=== PATIENT | female | born 1980 | race Caucasian/White ===

== ENCOUNTER 2016-05-12 15:42 | Emergency (ER) | payer OTHER ==
--- NOTE | ~2016-05-12 | CT2 ---
[facility] A Service of [facility] & [facility] RADIOLOGY TEXT RESULTS PATIENT: PATRICIA SUAREZ LOCATION: [facility] : 82 UNIT #: [id number] AGE: [address]: Simba Correa MD SEX: F ORDER DR: [id number] [facility] [address] [place], [place] [address] [id number] E MR#: [id number] Acc #: [id number] NAME: PATRICIA SUAREZ : 1980 SEX: F STUDY DATE/TIME: 05/12/2016 16:18 UNIT: [facility] ROOM: STUDY DESCRIPTION: CT Abd and Pelv W Cont Attending Physician: Simba Correa M.D. Ordering Physician: Vijay Coppola M.D. Primary Care Physician: Jose Guthrie M.D. MEDICAL IMAGING REPORT This report is preliminary unless electronic signature is present EXAM Abdomen and pelvis CT with contrast 05/12/2016 INDICATION 35-year-old female with abdominal pain and vomiting. Left upper quadrant pain. The patient believes she has worms. Cholecystectomy. TECHNIQUE Contrast-enhanced abdomen and pelvis CT was performed and compared with 04/29/2016. This CT examination was performed with one or more of the following radiation dose reduction techniques: automatic exposure control, adjustment of mA and/or kV according to patient size, and iterative reconstruction. FINDINGS CT ABDOMEN: There is some minimal atelectasis/scarring in the superior segment right lower lobe. Lung bases otherwise clear. No effusion or pericardial effusion. Aorta unremarkable. Gallbladder is surgically absent. Spleen, adrenal glands and pancreas unremarkable. Liver unremarkable. Kidneys nonobstructed. There is a small cyst in the left kidney. 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 There is relative atrophy of the upper pole collecting system on the left and cortical scarring. Findings are unchanged from the prior study for technical factors. No adenopathy or fluid collection. CT PELVIS: Bladder unremarkable. No adnexal mass, free fluid or drainable fluid collection in the pelvis. Tampon artifact noted in the vaginal canal. Bowel demonstrates no inflammatory change or obstruction and the appendix is normal. Inguinal canals unremarkable. There is no suspicious bone lesion. [facility] A Service of [facility] & [facility] RADIOLOGY TEXT RESULTS PATIENT: PATRICIA SUAREZ LOCATION: [facility] : 82 UNIT #: [id number] AGE: [address]: Simba Correa MD SEX: F ORDER DR: IMPRESSION 1. No clearly acute process in the abdomen or pelvis. No bowel obstruction, drainable fluid collection or focal area of inflammatory change and the appendix is normal. 2. 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 Incidental left renal cyst. 3. Status post cholecystectomy. Dictated by... Kumar Kim M.D. THIS IS AN ELECTRONICALLY VERIFIED REPORT Kumar Kim M.D. at 05/13/2016 7:21 AM FABRICE/christine TD: 05/13/2016 07:05 JOB #: [id number] MEDICAL IMAGING REPORT COPY
[2016-05-12 14:24] LABS: URINE SOURCE CLEAN CATCH
[2016-05-12 14:27] LABS: BASOPHIL% 0.2 % (0-2.5); EOSINOPHIL# 0.1 X10e3 (0-0.7); EOSINOPHIL% 2.5 % (0.0-7.0); HEMATOCRIT 42.7 % (35.0-45.0); HEMOGLOBIN 13.8 gm/dL (12.0-16.0); LYMPHOCYTE# 1.7 X10e3 (1.0-3.5); LYMPHOCYTE% 33.5 % (17.0-45.0); MEAN CELL VOLUME 81.3 FL (83-96); MEAN CORPUSCULAR HEMOGLOBIN 26.2 PG (28-34); MEAN CORPUSCULAR HGB CONC 32.2 g/dL (30-36); MEAN PLATELET VOLUME 7.7 FL (6.5-11.5); MONOCYTE# 0.3 X10e3 (0-1.0); MONOCYTE% 5.9 % (3.0-12.0); NEUTROPHIL% 57.9 % (40-75); PLATELET COUNT 215 X10e3 (140-420); RED BLOOD COUNT 5.25 X10e (3.90-5.30); WHITE BLOOD COUNT 5.1 X10e3 (4.0-10.5)
[2016-05-12 14:33] LABS: DIFF IND NO
[2016-05-12 14:41] LABS: URINE APPEARANCE CLEAR; URINE BILIRUBIN NEG (NEG); URINE BLOOD NEG (NEG); URINE COLOR YELLOW; URINE GLUCOSE NEG (NEG); URINE KETONE NEG (NEG); URINE LEUKOCYTE ESTERASE NEG (NEG); URINE NITRATE NEG (NEG); URINE PROTEIN NEG (NEG); URINE SPECIFIC GRAVITY 1.018 (1.003-1.035); URINE UROBILINOGEN 0.2 MG/DL (NEG)
[2016-05-12 14:49] LABS: CULTURE INDICATED? NO
[2016-05-12 15:07] LABS: ALBUMIN SERUM 4.4 g/dL (3.5-5.0); ALKALINE PHOSPHATASE 86 U/L (32-92); ALT (SGPT) 18 U/L (10-40); AMYLASE 46 U/L (0-46); AST (SGOT) 20 U/L (10-42); BILIRUBIN, DIRECT 0.1 mg/dL (0.0-0.2); BILIRUBIN,INDIRECT 0.4 mg/dL (0.0-0.9); BILIRUBIN,TOTAL 0.5 mg/dL (0.2-2.0); BLOOD UREA NITROGEN 10 mg/dL (9-23); BUN/CREATININE RATIO 16.66; CALCIUM SERUM 9.4 mg/dL (8.4-10.2); CARBON DIOXIDE 26 mmol/L (22-31); CHLORIDE 105 mmol/L (100-111); CREATININE SERUM 0.6 mg/dL (0.6-1.4); GLOM FILT RATE Estimated ABOVE60 mL/min (>60); GLUCOSE FASTING 113 mg/dL (70-110); LIPASE 47 U/L (22-51); POTASSIUM 4.2 mmol/L (3.5-5.1); PROTEIN TOTAL SERUM 7.9 g/dL (6.0-8.3); SODIUM 141 mmol/L (135-145)
== END 2016-05-12 16:55 | disposition home or self-care (01) ==
LOC: CED 15:42
PROVIDERS: Emergency Medicine
DX: R10.12 Left upper quadrant pain (principal); R11.2 Nausea with vomiting, unspecified; Z90.49 Acquired absence of other specified parts of digestive tract; Z88.0 Allergy status to penicillin
CPT/HCPCS: 36415; 74177; 80048; 80076; 81003; 82150; 83690; 84703; 85025; 96361; 96374; 96375; 99284; J2270; J2405; Q9967

== ENCOUNTER 2016-06-05 12:53 | Inpatient (IN) | payer OTHER ==
--- NOTE | ~2016-06-05 | DS ---
Unit #: [id number] #: [id number] Patient: PATRICIA SUAREZ [id number] [address] [place], [place] [address] [id number] I MR#: [id number] NAME: PATRICIA SUAREZ ROOM: 323 Age: 35 Sex: F Admission Date: 06/05/2016 : 1980 Discharge Date: 06/08/2016 Attending Physician: Peyton Byrne M.D. Primary Care Physician: Jose Guthrie M.D. DISCHARGE SUMMARY FINAL DIAGNOSES 1. Intractable nausea, vomiting, which is resolved. 2. The patient was afebrile during hospitalization. 3. Headache, which is improved. 4. Question of meningitis, which has been ruled out. 5. Hypokalemia, resolved. 6. Acute bronchitis. 7. Acute sinusitis. 8. Urinary tract infection. DISCHARGE MEDICATIONS Doxycycline 100 mg p.o. b.i.d. for 7 days; prednisone 30 mg p.o. daily for 3 days, then decrease 10 mg every 3 days until off. Continue rest of the home medications. CONSULTATION DURING HOSPITALIZATION Dr. Concepcion from Pulmonary Services; Dr. Colin from Neurology Services. HOSPITAL COURSE A 35-year-old, female, patient of Dr. Guthrie, has been seen in the ER several times for the similar problem. She was diagnosed with flu and acute upper respiratory infection, was given antibiotic, and sent home. She did not get better, returns with nausea, vomiting, and fever at home. Also in the ER, the patient's temp was 99.7. She did complain of headache and vomiting episodes. The patient was admitted to telemetry unit at [facility]. CT scan of the head was done, which was normal. Neurology was consulted. Per Dr. Colin, does not clinically look like this meningitis, so just continue to observe. The patient is doing much better at this time. The patient received IV acyclovir, IV vancomycin, and IV Rocephin on admission, which was later on changed to IV Rocephin only. The patient is doing much better. She wants to be discharged home. The patient did not have an episode of bradycardia. According to the patient, she gets that while sleeping. She has history of narcolepsy and she will follow up with primary care provider on that. The patient's lactic acid was high, but as per Dr. Concepcion, it is from nebulizer treatment, but we are going to repeat one set before discharge. DISCHARGE PHYSICAL EXAMINATION VITAL SIGNS: On discharge, blood pressure 137/62, respiratory rate 20, pulse is 68, temperature 98.2. HEENT: Head is normocephalic. CHEST: Fair air entry. Unit #: [id number] #: [id number] Patient: PATRICIA SUAREZ CVS: Regular rhythm. DISCHARGE INSTRUCTIONS 1. The patient is being discharged home in stable condition. 2. The patient did have an episode of bradycardia in the nighttime according to the patient whenever she takes pain medication, it does happen. She may need workup as an outpatient. This was told to the patient also. TSH to be done and further cardiac workup may need to be done. 3. The patient is being discharged on doxycycline b.i.d. 4. The patient had hypertension during hospitalization. Norvasc is being prescribed that may need to be adjusted as outpatient. 5. The patient has been advised to follow up with primary care provider in 1 week. 6. Follow up with Dr. Concepcion in 2 weeks. Dictated by... Kasey Rich/marian TD: 06/09/2016 07:25 JOB #: [id number] DISCHARGE SUMMARY Page 1 of 1 X Peyton Byrne MD X DISCHARGE SUMMARY
--- NOTE | ~2016-06-05 | CR63 ---
[facility] A Service of [facility] RADIOLOGY TEXT RESULTS PATIENT: PATRICIA SUAREZ LOCATION: [facility] : [birth year] UNIT #: [id number] AGE: [address]: Peyton Byrne MD SEX: F ORDER DR: [id number] [facility] [address] [place], [place] [address] [id number] E MR#: [id number] Acc #: [id number] NAME: PATRICIA SUAREZ : 1980 SEX: F STUDY DATE/TIME: 06/05/2016 13:17 UNIT: [facility] ROOM: STUDY DESCRIPTION: CR Chest 2 View Attending Physician: Azalia Ren A.P.R.N. Ordering Physician: Edward Ayoub M.D. Primary Care Physician: Jose Guthrie M.D. MEDICAL IMAGING REPORT This report is preliminary unless electronic signature is present EXAM Chest x-ray, 06/05/2016. HISTORY Fever, cough, and short of air for 1 month. COMPARISON 08/10/2010 FINDINGS PA and lateral examination of the chest upright shows a good expansion of the parenchyma with a normal distribution of the pulmonary vascularity. There is no indication of congestion, effusion, infiltrate, tumor, or nodular density. The pleural reflections and diaphragmatic contours are normal. The cardiac silhouette and mediastinal anatomy is within normal limits. IMPRESSION Normal chest. Dictated by... Noel Polo Jr., M.D. THIS IS AN ELECTRONICALLY VERIFIED REPORT Noel Polo Jr., M.D. at 06/05/2016 4:31 PM PETERSON/marito TD: 06/05/2016 14:59 JOB #: [id number] [facility] A Service [facility] RADIOLOGY TEXT RESULTS PATIENT: PATRICIA SUAREZ LOCATION: [facility] : [birth year] UNIT #: [id number] AGE: [address]: Peyton Byrne MD SEX: F ORDER DR: MEDICAL IMAGING REPORT Page 1 of 1 COPY
--- NOTE | ~2016-06-05 | CT57 ---
[facility] A Service of [facility] & [facility] RADIOLOGY TEXT RESULTS PATIENT: PATRICIA SUAREZ LOCATION: [facility] 323-01 : [birth year] UNIT #: [id number] AGE: [address]: Peyton Byrne MD SEX: F ORDER DR: [id number] [facility] [address] [place], [place] [address] [id number] I MR#: [id number] Acc #: [id number] NAME: PATRICIA SUAREZ : 1980 SEX: F STUDY DATE/TIME: 06/07/2016 16:47 UNIT: A U ROOM: 323 STUDY DESCRIPTION: CT Chest Wo Cont Attending Physician: Peyton Byrne M.D. Ordering Physician: Peyton Byrne M.D. Primary Care Physician: Jose Guthrie M.D. MEDICAL IMAGING REPORT This report is preliminary unless electronic signature is present EXAM CT chest without contrast. HISTORY Posterior chest pain, concern for pneumonia. Patient has had a fever, cough and shortness of air for a month. No cancer history. COMMENT This CT exam was performed with one or more of the following radiation dose reduction techniques: automatic exposure control, adjustment of mA and/or kV according to patient size, and iterative reconstruction. CT of chest performed in the axial plane without contrast followed by sagittal and coronal reconstructed images. Lack of contrast media limits evaluation for hilar mediastinal lymphadenopathy. Study cannot evaluate for pulmonary embolism. COMPARISON STUDIES There is earlier chest x-ray from 06/05/2016. FINDINGS Some limitation study by the patient's obesity. There is a small amount of pneumonitis at the right lower lobe laterally anteriorly and a small amount of pneumonitis in the left lower lobe posteriorly. These areas have subtle tree-in-bud appearance, and I suspect there are small areas of infectious or inflammatory disease. The involvement in the left lower lobe is more prominent than the right-sided involvement but still relatively mild. The lungs are otherwise clear. There is no pneumothorax or pleural effusion. No axillary adenopathy. The patient has had a cholecystectomy. No obvious pericardial effusion. There are degenerative changes in the thoracic spine, mid to lower levels STS. [facility] A Service of [facility] & [facility] RADIOLOGY TEXT RESULTS PATIENT: PATRICIA SUAREZ LOCATION: [facility] 323-01 : [birth year] UNIT #: [id number] AGE: [address]: Peyton Byrne MD SEX: F ORDER DR: with component of Scheuermann's disease appreciated. IMPRESSION 1. Subtle areas of pneumonitis posteriorly in the left lower lobe and more laterally in the right lower lobe. I suspect infectious or inflammatory disease given the areas of csug-bl-uzh-like involvement. Clinical correlation follow up suggested to ensure resolution. 2. No pneumothorax, pleural effusion or pericardial effusion. 3. There is evidence for thoracic spine degenerative disease with changes consistent with Scheuermann's disease lower thoracic spine. These are chronic finding but can be associated with back pain. 4. The study is limited by the patient's obesity and the lack of IV contrast media. Dictated by... Amanda Shin M.D. THIS IS AN ELECTRONICALLY VERIFIED REPORT Amanda Shin M.D. at 06/08/2016 3:09 PM WALESKA/chuckie TD: 06/08/2016 14:38 JOB #: [id number] MEDICAL IMAGING REPORT Page 1 of 1 COPY
--- NOTE | ~2016-06-05 | CT71 ---
[facility] A Service of [facility] RADIOLOGY TEXT RESULTS PATIENT: PATRICIA SUAREZ LOCATION: [facility] 323-01 : [birth year] UNIT #: [id number] AGE: [address]: Peyton Byrne MD SEX: F ORDER DR: [id number] [place] [id number] [facility] [place], [place] [address] [id number] I MR#: [id number] Acc #: [id number] NAME: PATRICIA SUAREZ : 1980 SEX: F STUDY DATE/TIME: 06/06/2016 17:17 UNIT: [address] ROOM: [facility] STUDY DESCRIPTION: CT Head Wo Contrast Attending Physician: Peyton Byrne M.D. Ordering Physician: Edgardo Jade M.D. Primary Care Physician: Jose Guthrie M.D. MEDICAL IMAGING REPORT This report is preliminary unless electronic signature is present EXAM CT head without contrast dated 06/06/2016 COMPARISON None. HISTORY Evaluate for meningitis. Headaches and fever for [address] exam was performed with one or more of the following radiation dose reduction techniques: automatic control, adjustment of mA and/or kV according to patient size, and iterative reconstruction. FINDINGS CT of the head was obtained without contrast in the axial plane as per the protocol. No acute intracranial hemorrhage, space-occupying mass, mass effect, midline shift or hydrocephalus. There is complete opacification of the right maxillary antrum. Mild right sphenoid, mild right ethmoid and inferior right frontal sinus mucosal thickening is seen. Nasal septum is deviated to the left with an apical spur. IMPRESSION 1. Brain does not demonstrate any significant abnormality. 2. Severe sinusitis of the right maxillary antrum is suspected in the appropriate clinical setting. Correlate clinically. Dictated by... Elly Xiao M.D. THIS IS AN ELECTRONICALLY VERIFIED REPORT Elly Xiao M.D. at 06/11/2016 8:44 AM CPR/rnr [facility] A Service of [facility] RADIOLOGY TEXT RESULTS PATIENT: PATRICIA SUAREZ LOCATION: [facility] 323-01 : [birth year] UNIT #: [id number] AGE: [address]: Peyton Byrne MD SEX: F ORDER DR: TD: 06/07/2016 03:58 JOB #: [id number] MEDICAL IMAGING REPORT Page 1 of 1 COPY
--- NOTE | ~2016-06-05 | HP ---
Unit #: [id number] #: [id number] Patient: PATRICIA SUAREZ [id number] [address] [address] [id number] I MR#: [id number] NAME: PATRICIA SUAREZ ROOM: 323 Age: 35 Sex: F Admission Date: 06/05/2016 : 1980 Attending Physician: Peyton Byrne M.D. Primary Care Physician: Jose Guthrie M.D. HISTORY AND PHYSICAL ADMISSION DIAGNOSES 1. Intractable nausea and vomiting. 2. Fever. 3. Headache. 4. Hypokalemia. 5. Acute bronchitis. HISTORY OF PRESENT ILLNESS Ms. Suarez is a 35-year-old female patient of Dr. Guthrie, who apparently was seen in the emergency room several times for the similar problems, was diagnosed with the acute upper respiratory infection, was given some antibiotics and sent home. She returns with the same complaints of congestion, intractable nausea and vomiting. Today she is with the low-grade fever of 99.7, also complains of some headache and continues to have vomiting episodes. Otherwise she denies any dizziness, denies any chest pain or increasing shortness of air, denies any syncope or presyncope, denies any abdominal pain, denies any diarrhea. REVIEW OF SYSTEMS A 12-point review of systems on this patient is basically negative except as above. PAST MEDICAL HISTORY Past medical history is significant for no chronic medical issues. PAST SURGICAL HISTORY She is status post cholecystectomy. HOME MEDICATIONS Apparently she was given some antibiotic and she was taking some poqy-mxt-xexiugu decongestants. ALLERGIES Penicillin. SOCIAL HISTORY Significant for occasional marijuana use, denies any IV drugs, she is an active smoker. FAMILY HISTORY Unremarkable. PHYSICAL EXAMINATION Unit #: [id number] #: [id number] Patient: PATRICIA SUAREZ GENERAL: On the physical exam patient is a 35-year-old female who is upset and anxious secondary to her ongoing nausea and vomiting. VITAL SIGNS: BP 148/78. Heart rate 78. Respirations 20. Temperature 99.7. HEENT: Head is atraumatic. Pupils equal, round and reactive to light and accommodation. Extraocular muscles intact. Oropharynx clear. NECK: Neck is supple. No mass. No JVD. No bruits. CHEST: Chest is diminished with occasional rhonchi. CARDIOVASCULAR EXAM: S1, S2. No murmurs. ABDOMEN: Soft, obese, nontender, nondistended. Bowel sounds present. EXTREMITIES: Lower extremities without any significant cyanosis, clubbing or edema. NEUROLOGICAL EXAM: Without any focal deficits. DIAGNOSTIC STUDIES IMAGING: Chest x-ray is normal. LABORATORY: White count 4.9, hemoglobin and hematocrit 14.6 and 44.3. Influenza panel negative. Chemistry significant for blood glucose 143 and potassium of 3.2. ASSESSMENT AND PLAN 1. Intractable nausea and vomiting along with the headache and fever: I started patient on IV vancomycin, Rocephin and acyclovir empirically. Will get the STAT CT of the head without the contrast. Will get Neurology and I/D evaluation. If CT head okay may proceed with the LP but for now empirically she will be covered for bacterial and viral as well. 2. Acute bronchitis: Status post evaluation per Pulmonary. Ordered a CT of the chest. Continue Zithromax per pulmonary. 3. Likely a urinary tract infection: Follow up on urine culture. Rocephin should cover. 4. Hypokalemia: Replace potassium and follow up on magnesium level. 5. GI and DVT prophylaxis: Continue PPI and put on Lovenox. Dictated by Edgardo Jade M.D. OC/robin TD: 06/06/2016 21:10 JOB #: [id number] Unit #: [id number] #: [id number] Patient: PATRICIA SUAREZ HISTORY AND PHYSICAL Page 1 of 1 X Edgardo Jade MD X HISTORY AND PHYSICAL
--- NOTE | ~2016-06-05 | CO ---
Unit #: [id number] #: [id number] Patient: PATRICIA SUAREZ [id number] [facility] [address]. [place], [place] [address] [id number] I MR#: [id number] NAME: PATRICIA SUAREZ ROOM: 323 Age: 35 Sex: F Admission Date: 06/05/2016 : 1980 Attending Physician: Peyton Byrne M.D. Primary Care Physician: Jose Guthrie M.D. Consultation Date: 06/07/2016 CONSULTATION REPORT PRIMARY CARE PHYSICIAN Jose Guthrie M.D. REASON FOR CONSULTATION Rule out meningitis. PATIENT IDENTIFICATION This is a 35-year-old, right-handed, white female, who was evaluated in room 323 at [facility]. SOURCE OF INFORMATION The patient and evaluation by admitting team. PROBLEMS 1. Intractable nausea and vomiting. 2. Fever. 3. Headaches. 4. Hypokalemia. 5. Acute bronchitis. 6. Question about UTI. 7. Recent flu-like symptoms. 8. She is also status post cholecystectomy in the past. HISTORY OF PRESENT ILLNESS This is a very pleasant 35-year-old, right-handed, white female, who was actually admitted yesterday for nausea, vomiting, and headaches. She has recently seen Dr. Guthrie for some sort of upper respiratory tract type illness and she ended up getting some antibiotics and sent home, but she did not get better and she came to the hospital. She had low-grade fever of 99.7. She is complaining of headache and nausea and vomiting and mixing them altogether the biggest concern was that it could be meningitis. She saw Dr. Concepcion and he diagnosed her with acute bronchitis and acute exacerbation of likely underlying COPD. The patient has improved dramatically. She is doing very well. She is relatively afebrile. White count is okay. There is no neck stiffness. There are no mental status changes. Her head CT was okay. There is no seizures or other issues and she is a totally different person today. I did discuss spinal tap with her, but she is not interested and clinically I am not very impressed that this is meningitis anyway. No falls or injuries. Unit #: [id number] #: [id number] Patient: PATRICIA SUAREZ No other significant medical issues. I do not think she has been having any chronic issues. She does look like she has obesity and may have other breathing issues. PAST MEDICAL HISTORY As discussed above. PAST SURGICAL HISTORY As discussed above. ALLERGIES Penicillin. HOME MEDICATIONS Nothing on a regular basis, but she was given some antibiotics lately. FAMILY HISTORY Reviewed. No neurologic issues to my knowledge. SOCIAL HISTORY She denies tobacco, alcohol, or drug use. Question about active smoking. REVIEW OF SYSTEMS CONSTITUTIONAL: Detailed review of system was attempted. The patient denies any recent weight issues, fever, chills, rigor, or sweats. She denies any sleep issues. HEENT: Headaches almost totally resolved. NECK: No neck stiffness. CARDIOVASCULAR: No chest pain, clubbing, cyanosis, orthopnea, or palpitation. PULMONARY: No shortness of air, but she was having some cough. GI: She has some nausea, vomiting, which resolved. : No genitourinary symptoms. EXTREMITIES: No extremity problems. BACK: No back problems. PSYCHIATRIC: No psychotic issue. NEUROLOGIC: No other neurologic issue. No other hematologic, dermatological, or endocrine problems. PHYSICAL EXAMINATION VITAL SIGNS: Temperature 98.5, pulse 59, respirations 20, blood pressure 140/77, pain was anywhere from 0 to 10 over 10, last one when I got was 5. Weight of 259 pounds. BMI 38. NEUROLOGIC: The patient is awake. She is alert. She is oriented. She can name and follow commands. No right or left confusion. No finger agnosia. Cranial nerve examination demonstrates full montano of vision to confrontation. Eye movements are conjugate. I did not see any ptosis. I did not see any nystagmus. Extraocular movements are intact. Sensation on the face and scalp are normal. Strength of muscles of facial expression normal. Hearing seemed to be intact bilaterally. Tongue was midline. Uvula was midline. Palate elevation is normal. Motor examination demonstrated normal bulk, tone. Strength was essentially 5/5. Sensory examination intact for soft touch and pain sensation. No extinction was seen. Romberg was not evaluated. Unit #: [id number] #: [id number] Patient: PATRICIA SUAREZ Gait examination was deferred. I could not get any reflexes in the lower extremities and 1/4 in the upper extremities. Toes are equivocal. Coordination was normal. DIAGNOSTIC STUDIES LABORATORY RESULTS: Reviewed. IMAGING STUDIES: Reviewed. IMPRESSION Headache associated with some sort of infection or viral illness, nothing really showing up as impressive meningismus, white count, fever, or other conditions like encephalopathy or seizures to suggest that this may be meningitis or encephalitis. I will observe her. At present, I do not see any need for spinal tap, but if further necessitated or changes in her condition, I will be more than glad to revisit her. Call me for any other questions, issues, or concerns. Dictated by... Kasey Pressley/marian TD: 06/09/2016 00:56 JOB #: [id number] CONSULTATION REPORT Page 1 of 1 X Mela Colin MD X CONSULTATION REPORT
--- NOTE | ~2016-06-05 | CO ---
Unit #: [id number] #: [id number] Patient: PATRICIA SUAREZ [id number] [address] [place], [place] [address] [id number] I MR#: [id number] NAME: PATRICIA SUAREZ ROOM: 20281 Age: 35 Sex: F Admission Date: 06/05/2016 : 1980 Attending Physician: Peyton Byrne M.D. Primary Care Physician: Jose Guthrie M.D. CONSULTATION REPORT CHIEF COMPLAINT Shortness of breath and chest pain. HISTORY OF PRESENT ILLNESS The patient is basically is a 35-year-old female who has a past medical history significant for likely obstructive sleep apnea, presents with a complaint of shortness of breath, cough and increasing sputum production last two to three days and symptoms have been getting worse. According to the patient she has increasing exertional dyspnea, currently has been admitted with impression of asthma exacerbation. I am seeing the patient at bedside. She denies any nausea, vomiting, diarrhea, complaining of chest pain. PHYSICAL EXAMINATION VITAL SIGNS: Temperature is 98. Pulse is 81. Respiration 16. Blood pressure 140/93. NEUROLOGICAL: Awake, alert and oriented. No neuro deficit. HEENT: PERRLA. EOMI. NECK: Supple. No JVD. CHEST: Bilateral air entry. Bilateral mild rhonchi. GI: Nontender, soft, bowel sounds positive. EXTREMITIES: No edema. SKIN: No rashes. No ulcer. LYMPHATIC: No lymphadenopathy. DIAGNOSTIC STUDIES IMAGING: Chest x-ray showed no acute infiltrate. ASSESSMENT AND PLAN 1. Acute bronchitis. 2. Acute exacerbation of likely underlying chronic obstructive pulmonary disease although patient is a nonsmoker but has a history of secondhand smoke exposure and chest pain. PLAN Plan is to get a troponin, D-dimer. Continue IV steroid, IV antibiotic, bronchodilator. Will consider doing a CT chest PE protocol. Please see orders for detailed plan. Thank you very much for this consultation. We will continue to follow the patient along with you. Unit #: [id number] #: [id number] Patient: PATRICIA SUAREZ Dictated by... Kasey Feliciano/robin TD: 06/05/2016 18:28 JOB #: [id number] CONSULTATION REPORT Page 1 of 1 X Cristine Concepcion MD CONSULTATION REPORT
[2016-06-05 12:53] LABS: INFLUENZA A NEG (NEG); INFLUENZA B NEG (NEG)
[2016-06-05 12:56] LABS: URINE SOURCE CLEAN CATCH
[2016-06-05 13:01] LABS: BASOPHIL% 0.3 % (0-2.5); EOSINOPHIL# 0.1 X10e3 (0-0.7); EOSINOPHIL% 1.8 % (0.0-7.0); HEMATOCRIT 44.3 % (35.0-45.0); HEMOGLOBIN 14.6 gm/dL (12.0-16.0); LYMPHOCYTE# 1.8 X10e3 (1.0-3.5); LYMPHOCYTE% 37.9 % (17.0-45.0); MEAN CELL VOLUME 80.4 FL (83-96); MEAN CORPUSCULAR HEMOGLOBIN 26.5 PG (28-34); MONOCYTE# 0.3 X10e3 (0-1.0); MONOCYTE% 6.3 % (3.0-12.0); NEUTROPHIL# 2.6 X10e3 (1.5-7.1); NEUTROPHIL% 53.7 % (40-75); PLATELET COUNT 271 X10e3 (140-420); RED BLOOD COUNT 5.51 X10e (3.90-5.30); RED CELL DISTRIBUTION WIDTH 15.7 % (11.0-15.5); WHITE BLOOD COUNT 4.9 X10e3 (4.0-10.5)
[2016-06-05 13:02] LABS: DIFF IND NO; URINE APPEARANCE CLOUDY; URINE BILIRUBIN NEG (NEG); URINE BLOOD NEG (NEG); URINE COLOR YELLOW; URINE GLUCOSE NEG (NEG); URINE KETONE NEG (NEG); URINE LEUKOCYTE ESTERASE 2+ (NEG); URINE NITRATE NEG (NEG); URINE PROTEIN NEG (NEG); URINE SPECIFIC GRAVITY 1.023 (1.003-1.035)
[2016-06-05 13:07] LABS: CULTURE INDICATED? YES; URINE BACTERIA AUWI 2+ (NEGATIVE); URINE SQUAMOUS EPITHELIAL CELL MOD /[HPF]
[2016-06-05 13:22] LABS: URBCS1 AUWI 0-2 /[HPF] (0-2)
[2016-06-05 13:23] LABS: UWBCS1 AUWI 25-50 (0-5)
[2016-06-05 13:28] LABS: ALBUMIN SERUM 4.3 g/dL (3.5-5.0); BILIRUBIN,TOTAL 0.4 mg/dL (0.2-2.0); BUN/CREATININE RATIO 8.57; CALCIUM SERUM 9.4 mg/dL (8.4-10.2); CREATININE SERUM 0.7 mg/dL (0.6-1.4); GLOM FILT RATE Estimated 113.8 mL/min (>60); POTASSIUM 3.2 mmol/L (3.5-5.1); PROTEIN TOTAL SERUM 8.4 g/dL (6.0-8.3)
[2016-06-07 09:14] LABS: BASOPHIL% 0.2 % (0-2.5); EOSINOPHIL% 0.1 % (0.0-7.0); HEMATOCRIT 36.6 % (35.0-45.0); LYMPHOCYTE# 1.2 X10e3 (1.0-3.5); MEAN CELL VOLUME 81.6 FL (83-96); MEAN CORPUSCULAR HEMOGLOBIN 26.2 PG (28-34); MEAN CORPUSCULAR HGB CONC 32.1 g/dL (30-36); MEAN PLATELET VOLUME 8.4 FL (6.5-11.5); MONOCYTE# 0.3 X10e3 (0-1.0); MONOCYTE% 3.1 % (3.0-12.0); NEUTROPHIL# 9.4 X10e3 (1.5-7.1); NEUTROPHIL% 85.6 % (40-75); PLATELET COUNT 232 X10e3 (140-420); RED BLOOD COUNT 4.49 X10e (3.90-5.30); RED CELL DISTRIBUTION WIDTH 16.1 % (11.0-15.5)
[2016-06-07 09:15] LABS: DIFF IND NO; HEMOGLOBIN 11.8 gm/dL (12.0-16.0)
[2016-06-07 10:20] LABS: BUN/CREATININE RATIO 12.5; CALCIUM SERUM 9.3 mg/dL (8.4-10.2); CREATININE SERUM 0.8 mg/dL (0.6-1.4); MAGNESIUM 2.2 mg/dL (1.6-3.0)
[2016-06-07 10:43] LABS: PROCALCITONIN 0.07 NG/ML
[2016-06-08] MEDS ORDERED: NORVASC PO (14:24)
[2016-06-08] MEDS ORDERED: PREDNISONE (14:25)
[2016-06-08] MEDS ORDERED: DOXYCYCLINE HY100 M3 PO (15:12)
== END 2016-06-08 15:54 | disposition home or self-care (01) | DRG 191 ==
LOC: CED 12:53 → CEDOF 15:52 → C3A PCU 18:40
PROVIDERS: Hospitalist; Nurse Practitioner
PROC: 05H633Z Insertion of Infusion Device into Left Subclavian Vein, Percutaneous Approach (ICD-10-PCS; principal; 2016-06-07)
PROC: B547ZZA Ultrasonography of Left Subclavian Vein, Guidance (ICD-10-PCS; 2016-06-07)
DX: J44.0 Chronic obstructive pulmonary disease with (acute) lower respiratory infection (principal); N39.0 Urinary tract infection, site not specified; E66.01 Morbid (severe) obesity due to excess calories; R11.2 Nausea with vomiting, unspecified; J44.1 Chronic obstructive pulmonary disease with (acute) exacerbation; E87.6 Hypokalemia; R51 Headache; R50.9 Fever, unspecified; Z90.49 Acquired absence of other specified parts of digestive tract; Z88.0 Allergy status to penicillin; J20.9 Acute bronchitis, unspecified; R07.9 Chest pain, unspecified; B96.20 Unspecified Escherichia coli [E. coli] as the cause of diseases classified elsewhere; J01.00 Acute maxillary sinusitis, unspecified
CPT/HCPCS: 36415; 70450; 71020; 71250; 80048; 80053; 81003; 82308; 83036; 83605; 83735; 84703; 85025; 85379; 86308; 87086; 87088; 87186; 87804; 94640; 94760; 96361; 96374; 96375; 99285; J0133; J0456; J0696; J1650; J2270; J2405; J2550; J2920; J2930; J3370

== ENCOUNTER 2016-10-13 08:15 | Emergency (ER) | payer OTHER ==
[~2016-10-13] VITALS: Ht 175.3 cm; Wt 118.0 kg
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
[~2016-10-13 08:15] MED LIST: DOXYCYCLINE HY100 M3 PO; NORVASC PO; PREDNISONE
== END 2016-10-13 10:15 | disposition home or self-care (01) ==
LOC: CFTX 08:15 → CED 08:15 → CFTX 09:18
DX: S39.012A Strain of muscle, fascia and tendon of lower back, initial encounter (principal); S76.011A Strain of muscle, fascia and tendon of right hip, initial encounter; M25.461 Effusion, right knee; Z88.0 Allergy status to penicillin; V49.50XA Passenger injured in collision with unspecified motor vehicles in traffic accident, initial encounter; Y92.488 Other paved roadways as the place of occurrence of the external cause
CPT/HCPCS: 72100; 73502; 73562; 84703; 99284

== ENCOUNTER 2016-11-03 13:48 | Emergency (ER) | payer OTHER ==
[~2016-11-03] VITALS: Ht 175.3 cm; Wt 115.7 kg
== END 2016-11-03 14:34 | disposition home or self-care (01) ==
LOC: CED 13:48 → CFTX 13:48
DX: S89.91XA Unspecified injury of right lower leg, initial encounter (principal); Z88.0 Allergy status to penicillin; X58.XXXA Exposure to other specified factors, initial encounter; Y92.9 Unspecified place or not applicable
CPT/HCPCS: 29505; 99283